=== PATIENT | female | born 1950 | race Two or more races ===

== ENCOUNTER 2020-01-28 09:40 | Outpatient (CLI) | payer MEDICARE | END 2020-01-28 23:59 | disposition home or self-care (01) | LOC: MSC 09:40 | PROVIDERS: ATTEND Anesthesiology | DX: M40.299 Other kyphosis, site unspecified (principal); M62.830 Muscle spasm of back; M79.2 Neuralgia and neuritis, unspecified; M79.605 Pain in left leg; M79.604 Pain in right leg; E78.00 Pure hypercholesterolemia, unspecified; M06.9 Rheumatoid arthritis, unspecified; Z95.5 Presence of coronary angioplasty implant and graft; Z95.0 Presence of cardiac pacemaker ==